=== PATIENT | male | born 1995 | race Two or more races ===

== ENCOUNTER 2020-05-04 09:25 | Emergency (ER) | payer BC ==
[~2020-05-04] VITALS: Ht 190.5 cm; Wt 113.4 kg
[2020-05-04] MEDS ORDERED: DEBROX15 M1 BOTH EARS (09:49)
--- NOTE | 2020-05-04 09:50 | Emergency Room Report ---
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 Patient History Past Medical History: see triage record Reviewed Nursing Documentation: PMH: Agreed; PSxH: Agreed Nursing Documentation-PMH Past Medical History: No Stated History Review of Systems All Other Systems: negative except mentioned in HPI Physical Exam Vital Signs Date Time Temp Pulse Resp B/P (MAP) Pulse Ox O2 Delivery O2 Flow Rate FiO2 05/04/20 09:29 98.1 54 16 138/84 (102) 99 Room Air General Appearance: well appearing, no apparent distress Head: normocephalic, atraumatic ENT: hearing grossly normal, normal voice, other - Left ear: Ear wax impaction with irritation of the canal, no pus no drainage, right ear: Earwax impaction noted canal unremarkable Neck: full range of motion, supple Respiratory: no respiratory distress, speaking full sentences Neurologic: alert, normal gait Psychiatric: mood/affect normal Skin: no rash Medical Decision Making Diagnostic Impression: Primary Impression: Impacted cerumen of both ears ER Course 25-year-old male presents with impacted cerumen, attempted to disimpact the left ear, copious amounts of wax were removed however patient had too much wax, patient counseled to use Debrox, additionally patient can follow-up with ears nose and throat Disposition home with return precautions follow-up with PCP no indications for antibiotics, no evidence of otitis media no evidence of otitis externa Last Vital Signs Date Time Temp Pulse Resp B/P (MAP) Pulse Ox O2 Delivery O2 Flow Rate FiO2 05/04/20 09:29 98.1 54 16 138/84 (102) 99 Room Air Disposition: HOME, SELF-CARE Condition: Stable Scripts Carbamide Peroxide (DEBROX) 15 Ml Drops 10 DROP BOTH EARS TWICE A DAY for 4 Days, #15 ML 0 Refills Prov: Sudeep Mccord MD 05/04/20 Referrals: [facility] Ruben Larios. [facility] Patient Instructions: Cerumen Impaction Additional Instructions: The patient was provided with discharge instructions, notified to follow-up with a primary care doctor and or specialist in the next 24-48 hours, and to return to the ED if they have worsening of their symptoms. Please note that this report is being documented using DRAGON technology. This can lead to erroneous entry secondary to incorrect interpretation by the dictating instrument. Sudeep Mccord MD May 04, 2020 09:50
[2020-05-04 09:59] VITALS: BP 127/87
--- NOTE | 2020-05-04 10:00 | NUR ---
ER DISCHARGE NOTE: Patient is cleared to be discharged per ERMD, pt is aox4, on room air, with stable vital signs. pt was given dc and prescription instructions, pt was able to verbalize understanding, pt id band removed. pt is able to ambulate with steady gait. pt took all belongings.
== END 2020-05-04 10:00 | disposition home or self-care (01) ==
LOC: EMR 09:57
DX: H61.23 Impacted cerumen, bilateral (principal)
CPT/HCPCS: 99282